=== PATIENT | male | born 1995 | race Caucasian/White ===

== ENCOUNTER 2024-11-09 03:19 | Emergency (ER) | payer OTHER ==
[~2024-11-09] VITALS: Ht 175.3 cm; Wt 71.9 kg
[2024-11-09] MEDS: diphenhydrAMINE 50 MG/ML VIAL IM ONE (04:44)
[2024-11-09] MEDS: HALOPERIDOL LACTATE 5 MG/ML VIAL IM ONE (04:44)
[2024-11-09 05:00] LABS: PLATELET COUNT, AUTOMATED 327 10^3/uL (150-450)
[2024-11-09 05:31] LABS: ETHYL ALCOHOL (ETHANOL) < 0.003 % (0.000-0.010)
[2024-11-09 05:33] LABS: ALT/SGPT 50 U/L (7.0-40); AST/SGOT 54 U/L (<34); CALCIUM LEVEL 10.6 MG/DL (8.5-10.1); CARBON DIOXIDE LEVEL 25 MMOL/L (20-31); CHLORIDE LEVEL 106 MMOL/L (98-107); CREATININE FOR GFR 1.20 MG/DL (0.70-1.30); GLOMERULAR FILTRATION RATE 83.4 (>60); POTASSIUM SERUM 5.6 MMOL/L (3.5-5.1); SALICYLATE LEVEL < 3.0 MG/DL (<30); SODIUM LEVEL 146 MMOL/L (136-145)
[2024-11-09] MEDS: NS (Normal Saline) 0.9% 1,000 ML IV ONE ×2 (07:57→09:19)
[2024-11-09] MEDS: SODIUM BICARBONATE 8.4% INJ 50ML SYRINGE IV STA (07:57)
[2024-11-09 08:50] LABS: CPK CREATINE PHOSPHOKINASE 1264 U/L (46-171)
[2024-11-09 09:28] LABS: KETONE, URINE AUTO RFX NEGATIVE (NEGATIVE); LEUKOCYTE ESTERASE UR AUTO RFX NEGATIVE (NEGATIVE); MUCUS, URINE RFX SMALL (NEGATIVE); NITRITE, URINE AUTO RFX NEGATIVE (NEGATIVE); RBC, URINE AUTO RFX 1 /HPF (0-3); SQUAM EPITHELIAL CELL UR AURFX 0 /HPF (0-6); WBC, URINE AUTO RFX 0 /HPF (0-3)
[2024-11-09 09:55] LABS: BARBITURATES URINE NEGATIVE (NEGATIVE); BENZODIAZEPINES URINE NEGATIVE (NEGATIVE); CPK CREATINE PHOSPHOKINASE 1259 U/L (46-171)
[2024-11-09 09:56] LABS: CANNABINOIDS URINE NEGATIVE (NEGATIVE); METHADONE URINE NEGATIVE (NEGATIVE); OPIATES URINE NEGATIVE (NEGATIVE); PHENCYCLIDINE URINE NEGATIVE (NEGATIVE)
[2024-11-09 10:00] LABS: AMPHETAMINES LEVEL URINE POSITIVE (NEGATIVE); CALCIUM LEVEL 8.3 MG/DL (8.5-10.1); CARBON DIOXIDE LEVEL 28 MMOL/L (20-31); CHLORIDE LEVEL 110 MMOL/L (98-107); COCAINE METABOLITE URINE POSITIVE (NEGATIVE); CREATININE FOR GFR 1.11 MG/DL (0.70-1.30); GLOMERULAR FILTRATION RATE > 90.0 (>60); POTASSIUM SERUM 3.5 MMOL/L (3.5-5.1); SODIUM LEVEL 145 MMOL/L (136-145)
[2024-11-09 20:10] VITALS: BP 129/83; TEMP 97; O2SAT 97
== END 2024-11-09 20:17 | disposition home or self-care (01) ==
LOC: M ED 03:19 → EDBD 03:19 → M ED 20:17
DX: F19.159 Other psychoactive substance abuse with psychoactive substance-induced psychotic disorder, unspecified (principal)
CPT/HCPCS: 70450; 71045; 72110; 72170; 73030; 73502; 80048; 80076; 80143; 80307; 81001; 82077; 82550; 84443; 85027; 93041; 96361; 96372; 96374; 99285; J1200; J1630; J2060